=== PATIENT | female | born 1985 | race Caucasian/White ===

== ENCOUNTER 2021-05-01 09:35 | Outpatient (CLI) | payer OTHER | END 2021-05-01 09:36 | disposition home or self-care (01) | LOC: CSHULT 09:35 | PROVIDERS: ATTEND Family Medicine | DX: R74.8 Abnormal levels of other serum enzymes (principal); K76.0 Fatty (change of) liver, not elsewhere classified | CPT/HCPCS: 93975 ==

== ENCOUNTER 2021-07-04 15:27 | Outpatient (CLI) | payer OTHER | END 2021-07-04 15:28 | disposition home or self-care (01) | LOC: CSHCT 15:27 | PROVIDERS: ATTEND Student in an Organized Health Care Education/Training Program | DX: J34.2 Deviated nasal septum (principal) ==

== ENCOUNTER 2024-08-21 15:56 | Emergency (ER) | payer OTHER, SELFPAY | END 2024-08-21 17:13 | disposition home or self-care (01) | LOC: CSHERS 15:56 | DX: R51.9 Headache, unspecified (principal); R05.9 Cough, unspecified; E78.00 Pure hypercholesterolemia, unspecified; Z79.899 Other long term (current) drug therapy | CPT/HCPCS: 99283 ==